=== PATIENT | female | born 1965 | race Caucasian/White ===

== ENCOUNTER 2018-10-07 02:01 | Emergency (ER) | payer OTHER ==
[2018-10-07] MEDS ORDERED: Acetaminophen/HYDROcodone 325-10 MG Tab PO ONE (02:02)
[2018-10-07 02:17] VITALS: PULSE 97
[2018-10-07 02:19] VITALS: BP 164/95
[2018-10-07] MEDS ORDERED: Morphine 2 MG/ML Syringe IVPUSH ONE ×2 (02:31→03:04)
[2018-10-07] MEDS ORDERED: Sodium Chloride 0.9% 1,000 ML IV ONE (02:31)
--- NOTE | 2018-10-07 02:45 | EDM.PDOC ---
ED HPI GENERAL MEDICAL PROBLEM - General Chief Complaint: Genitourinary Problem Stated Complaint: abdominal pain and vaginal bleading Time Seen by Provider: 10/07/18 02:35 Source of Information: Reports: Patient History Limitations: Reports: No Limitations - History of Present Illness INITIAL COMMENTS - FREE TEXT/NARRATIVE: This 53 yo female patient reports to the ED with vaginal pain and bleeding. The patient reports she removed her pessary device 3 weeks ago due to increased pain. The patient reports she had shoulder surgery and has been on pain medication up to 4 days ago. After she stopped taking oral pain medications, the patient has noticed increased pain. The patient reports her pain has been getting worse over the past 24 hours. The patient reports she has the urge to urinate, but has not been able to void. The patient reports she has some urine passage when she moves. The patient reports she had the pessary originally placed by Dr. Belcher (Urology in [facility]). Duration: Week(s):, Constant, Getting Worse Location: Reports: Other (vaginal pain) Quality: Reports: Ache, Sharp, Stabbing Severity: Moderate Improves with: Reports: None Worsens with: Reports: None Context: Reports: Other - Related Data Allergies Allergy/AdvReac Type Severity Reaction Status Date / Time No Known Allergies Allergy Verified 03/23/16 23:16 Home Meds: Home Meds Venlafaxine [Effexor XR] 1 tab PO DAILY 08/06/14 [History] Cholecalciferol (Vitamin D3) [Vitamin D3] 1,000 units PO DAILY 01/12/16 [History ] Dapsone 25 mg PO DAILY 01/12/16 [History] Hydrochlorothiazide 25 mg PO DAILY 01/12/16 [History] Multivitamin [Multivitamins] 1 tab PO DAILY 01/12/16 [History] Solifenacin [Vesicare] 5 mg PO DAILY 01/12/16 [History] Venlafaxine HCl [Venlafaxine ER] 37.5 mg PO DAILY 01/12/16 [History] amLODIPine [Norvasc] 5 mg PO DAILY 01/12/16 [History] amLODIPine [Norvasc] 5 mg PO DAILY 01/12/16 [History] hydrOXYzine HCl [Atarax] 25 mg PO ASDIRECTED PRN 01/12/16 [History] rOPINIRole [Requip] 1 mg PO DAILY 01/12/16 [History] Past Medical History HEENT History: Reports: None Cardiovascular History: Reports: Hypertension Respiratory History: Reports: Other (See Below) Other Respiratory History: Pneumonia DIRECT[employer] 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: 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: Musculoskeletal History: Reports: None Neurological History: Reports: None Psychiatric History: Reports: Anxiety, Depression Endocrine/Metabolic History: Reports: None Hematologic History: Reports: None Immunologic History: Reports: None Oncologic (Cancer) History: Reports: None Dermatologic History: Reports: None - Infectious Disease History Infectious Disease History: Reports: None - Past Surgical History Head Surgeries/Procedures: Reports: None GI Surgical History: Reports: Cholecystectomy Female Surgical History: Reports: Hysterectomy Neurological Surgical History: Reports: None Social & Family History - Family History Family Medical History: Noncontributory - Caffeine Use Caffeine Use: Reports: None - Living Situation & Occupation Living situation: Reports: ED ROS GENERAL - Review of Systems Review Of Systems: ROS reveals no pertinent complaints other than HPI. ED EXAM, RENAL/ - Physical Exam Exam: See Below Exam Limited By: No Limitations General Appearance: Alert, WD/WN, Moderate Distress Eye Exam: Bilateral Eye: EOMI, Normal Inspection, PERRL Ears: Normal External Exam, Normal Canal, Hearing Grossly Normal, Normal TMs Nose: Normal Inspection, Normal Mucosa, No Blood Throat/Mouth: Normal Inspection, Normal Lips, Normal Teeth, Normal Gums, Normal Oropharynx, Normal Voice, No Airway Compromise Head: Atraumatic, Normocephalic Neck: Normal Inspection, Supple, Non-Tender, Full Range of Motion Respiratory/Chest: No Respiratory Distress, Lungs Clear, Normal Breath Sounds, No Accessory Muscle Use, Chest Non-Tender Cardiovascular: Normal Peripheral Pulses, Regular Rate, Rhythm, No Edema, No Gallop, No JVD, No Murmur, No Rub GI/Abdominal: Normal Bowel Sounds, Soft, Non-Tender, No Organomegaly, No Distention, No Abnormal Bruit, No Mass Rectal (Female) Exam: Deferred Back Exam: Normal Inspection, Full Range of Motion, NT Extremities: Normal Inspection, Normal Range of Motion, Non-Tender, Normal Capillary Refill, No Pedal Edema Neurological: Alert, Oriented, CN II-XII Intact, Normal Cognition, Normal Gait, Normal Reflexes, No Motor/Sensory Deficits Psychiatric: Normal Affect, Normal Mood Skin Exam: Warm, Dry, Intact, Normal Color, No Rash Lymphatic: No Adenopathy Course - Vital Signs Last Recorded V/S: Last Vital Signs Temp 36.9 C 10/07/18 02:11 Pulse 97 10/07/18 02:11 Resp 18 10/07/18 02:11 BP 164/95 H 10/07/18 02:19 Pulse Ox 95 10/07/18 02:11 - Orders/Labs/Meds Orders: Active Orders 24 hr Category Date Time Status Bladder Scan [RC] ASDIRECTED Care 10/07/18 02:30 Active CULTURE BLOOD [BC] Stat Lab 10/07/18 03:00 Ordered CULTURE BLOOD [BC] Stat Lab 10/07/18 03:00 Ordered CULTURE URINE [RM] Urgent Lab 10/07/18 02:36 Received Sodium Chloride 0.9% [Normal Saline] 1,000 ml Med 10/07/18 02:31 Active IV .BOLUS Blood Culture x2 Reflex Set [OM.PC] Stat Oth 10/07/18 03:00 Ordered Medication Orders Sodium Chloride (Normal Saline) 1,000 mls @ 125 mls/hr IV .BOLUS ONE Stop: 10/07/18 10:30 Last Admin: 10/07/18 02:55 Dose: 125 mls/hr Labs: Laboratory Tests 10/07/18 10/07/18 10/07/18 Range/Units 02:36 02:36 02:36 WBC 17.2 H (5.0-10.0) 10^3/uL RBC 4.23 (4.2-5.4) 10^6/uL Hgb 13.4 (12.0-16.0) g/dL Hct 39.0 (37.0-47.0) % MCV 92.2 (80-100) fL MCH 31.7 (27.0-34.0) pg MCHC 34.4 (33.0-35.0) g/dL Plt Count 306 D (150-450) 10^3/uL Neut % (Auto) 74.0 (42.2-75.2) % Lymph % (Auto) 15.3 L (20.5-50.1) % [place] % (Auto) 8.0 (2-8) % Eos % (Auto) 2.4 (1.0-3.0) % Baso % (Auto) 0.3 (0.0-1.0) % Sodium 137 (135-145) mmol/L Potassium 2.9 L (3.6-5.0) mmol/L Chloride 100 L (101-111) mmol/L Carbon Dioxide 24.0 (21.0-31.0) mmol/L Anion Gap 15.9 BUN 15 (7-18) mg/dL Creatinine 0.8 (0.6-1.3) mg/dL Est Cr Clr Drug Dosing 79.99 mL/min Estimated GFR (MDRD) > 60 BUN/Creatinine Ratio 18.75 Glucose 133 H (74-105) mg/dL Lactic Acid (0.5-2.2) mmol/L Calcium 9.0 (8.4-10.2) mg/dl Total Bilirubin 0.4 (0.2-1.0) mg/dL AST 30 (10-42) IU/L ALT 24 (10-60) IU/L Alkaline Phosphatase 91 (42-121) IU/L Total Protein 6.9 (6.7-8.2) g/dl Albumin 3.7 (3.2-5.5) g/dl Globulin 3.2 Albumin/Globulin Ratio 1.16 Urine Color Red (YELLOW) Urine Appearance Cloudy (CLEAR) Urine pH 6.0 (5.0-9.0) Ur Specific [place] >= 1.030 (1.005-1.030) Urine Protein >=300 H (NEGATIVE) Urine Glucose (UA) Negative (NEGATIVE) Urine Ketones Trace H (NEGATIVE) Urine Occult Blood Large H (NEGATIVE) Urine Nitrite Positive H (NEGATIVE) Urine Bilirubin Small H (NEGATIVE) Urine Urobilinogen 1.0 (0.2-1.0) mg/dL Ur Leukocyte Esterase Small H (NEGATIVE) Urine RBC >100 H /HPF Urine WBC >100 H (0-5/HPF) /HPF Ur Epithelial Cells Few (NOT SEEN) /HPF Urine Bacteria Many H (0-FEW/HPF) /HPF Hyaline Casts Occasional H (NOT SEEN) /LPF 10/07/18 Range/Units 03:07 WBC (5.0-10.0) 10^3/uL RBC (4.2-5.4) 10^6/uL Hgb (12.0-16.0) g/dL Hct (37.0-47.0) % MCV (80-100) fL MCH (27.0-34.0) pg MCHC (33.0-35.0) g/dL Plt Count (150-450) 10^3/uL Neut % (Auto) (42.2-75.2) % Lymph % (Auto) (20.5-50.1) % [place] % (Auto) (2-8) % Eos % (Auto) (1.0-3.0) % Baso % (Auto) (0.0-1.0) % Sodium (135-145) mmol/L Potassium (3.6-5.0) mmol/L Chloride (101-111) mmol/L Carbon Dioxide (21.0-31.0) mmol/L Anion Gap BUN (7-18) mg/dL Creatinine (0.6-1.3) mg/dL Est Cr Clr Drug Dosing mL/min Estimated GFR (MDRD) BUN/Creatinine Ratio Glucose (74-105) mg/dL Lactic Acid 2.2 (0.5-2.2) mmol/L Calcium (8.4-10.2) mg/dl Total Bilirubin (0.2-1.0) mg/dL AST (10-42) IU/L ALT (10-60) IU/L Alkaline Phosphatase (42-121) IU/L Total Protein (6.7-8.2) g/dl Albumin (3.2-5.5) g/dl Globulin Albumin/Globulin Ratio Urine Color (YELLOW) Urine Appearance (CLEAR) Urine pH (5.0-9.0) Ur Specific [place] (1.005-1.030) Urine Protein (NEGATIVE) Urine Glucose (UA) (NEGATIVE) Urine Ketones (NEGATIVE) Urine Occult Blood (NEGATIVE) Urine Nitrite (NEGATIVE) Urine Bilirubin (NEGATIVE) Urine Urobilinogen (0.2-1.0) mg/dL Ur Leukocyte Esterase (NEGATIVE) Urine RBC /HPF Urine WBC (0-5/HPF) /HPF Ur Epithelial Cells (NOT SEEN) /HPF Urine Bacteria (0-FEW/HPF) /HPF Hyaline Casts (NOT SEEN) /LPF Meds: Medications Generic Name Dose Route Start Last Admin Trade Name Freq PRN Reason Stop Dose Admin Sodium Chloride 1,000 mls @ 125 mls/hr 10/07/18 02:31 10/07/18 02:55 Normal Saline IV 10/07/18 10:30 125 mls/hr .BOLUS ONE Administration Discontinued Medications Generic Name Dose Route Start Last Admin Trade Name Jose PRN Reason Stop Dose Admin Ciprofloxacin 500 mg 10/07/18 04:02 10/07/18 04:08 Ciprofloxacin Hcl PO 10/07/18 04:03 500 mg ONETIME ONE Administration Hydromorphone HCl 1 mg 10/07/18 03:21 10/07/18 03:25 Dilaudid IVPUSH 10/07/18 03:22 1 mg ONETIME ONE Administration Iopamidol 100 ml 10/07/18 03:05 10/07/18 03:16 Isovue-300 (61%) IVPUSH 10/07/18 03:06 100 ml ONETIME ONE Administration Morphine Sulfate 2 mg 10/07/18 02:31 10/07/18 02:56 Morphine IVPUSH 10/07/18 02:32 2 mg ONETIME ONE Administration Morphine Sulfate 2 mg 10/07/18 03:04 10/07/18 03:11 Morphine IVPUSH 10/07/18 03:05 2 mg ONETIME ONE Administration Phenazopyridine HCl 190 mg 10/07/18 04:02 10/07/18 04:09 Urinary Pain Relief PO 10/07/18 04:03 190 mg ONETIME ONE Administration Departure - Departure Time of Disposition: 04:18 Disposition: Home, Self-Care 01 Condition: Fair Clinical Impression: Acute cystitis Qualifiers: Hematuria presence: with hematuria Qualified Code(s): N30.01 - Acute cystitis with hematuria - Discharge Information *PRESCRIPTION DRUG MONITORING PROGRAM REVIEWED*: Not Applicable *COPY OF PRESCRIPTION DRUG MONITORING REPORT IN PATIENT VIKAS: Not Applicable Instructions: Urinary Tract Infection, Adult, [id number] Forms: ED Department Discharge Care Plan Goals: The patient was advised of the examination, lab and CT results during the visit. The patient was given IV fluids, IV Morphine, IV Dilaudid, oral Cipro and oral Pyridium while in the ED. The patient was discharged with [place] (10/325 ) #2 to take 1 by mouth every 6 hours. The patient was also given scripts for Cipro (500 mg) #14 to take 1 by mouth 2 times per day for 7 days, Pyridium (200 mg) #6 to take 1 by mouth 3 times per day and [place] (10/325) #8 to take 1 by mouth every 6 hours as needed for pain. The patient was encouraged to follow-up with her primary care facility. If the patient has any additional symptoms or concerns, the patient should either return to the emergency department or visit her primary care facility. - My Orders Last 24 Hours: My Active Orders 10/07/18 02:30 Bladder Scan [RC] ASDIRECTED 10/07/18 02:31 Sodium Chloride 0.9% [Normal Saline] 1,000 ml IV .BOLUS 10/07/18 02:36 CULTURE URINE [RM] Urgent 10/07/18 03:00 CULTURE BLOOD [BC] Stat CULTURE BLOOD [BC] Stat Blood Culture x2 Reflex Set [OM.PC] Stat - Assessment/Plan Last 24 Hours: My Active Orders 10/07/18 02:30 Bladder Scan [RC] ASDIRECTED 10/07/18 02:31 Sodium Chloride 0.9% [Normal Saline] 1,000 ml IV .BOLUS 10/07/18 02:36 CULTURE URINE [RM] Urgent 10/07/18 03:00 CULTURE BLOOD [BC] Stat CULTURE BLOOD [BC] Stat Blood Culture x2 Reflex Set [OM.PC] Stat
[2018-10-07 03:03] LABS: ANION GAP 15.9; CHLORIDE,CL 100 mmol/L (101-111); SODIUM,NA 137 mmol/L (135-145)
[2018-10-07] MEDS ORDERED: Iopamidol 612 MG/ML 100 ML Bottle IVPUSH ONE (03:05)
[2018-10-07] MEDS ORDERED: HYDROmorphone 1 MG/ML Syringe IVPUSH ONE (03:21)
[2018-10-07] MEDS ORDERED: Phenazopyridine 95 MG Tab PO ONE (04:02)
[2018-10-07] MEDS ORDERED: Ciprofloxacin 500 MG Tab PO ONE (04:02)
[2018-10-07] MEDS ORDERED: Acetaminophen/HYDROcodone 325-10 MG Tab ONE (04:24)
== END 2018-10-07 04:30 | disposition home or self-care (01) ==
LOC: DL.ED 02:01
DX: N30.01 Acute cystitis with hematuria (principal); I10 Essential (primary) hypertension; F41.9 Anxiety disorder, unspecified; Z90.49 Acquired absence of other specified parts of digestive tract; Z90.710 Acquired absence of both cervix and uterus; Z79.899 Other long term (current) drug therapy
CPT/HCPCS: 36415; 51798; 74177; 80053; 81001; 83605; 85025; 87040; 87086; 87088; 87186; 96365; 96375; 99284; A9270; J1170; J2270; J7030; Q9967

== ENCOUNTER 2018-10-09 15:50 | Emergency (ER) | payer OTHER ==
[2018-10-09 16:11] VITALS: BP 146/97
--- NOTE | 2018-10-09 16:21 | EDM.PDOC ---
"ED HPI GENERAL MEDICAL PROBLEM - General Chief Complaint: General Stated Complaint: IN PAIN Time Seen by Provider: 10/09/18 16:19 Source of Information: Reports: Patient, Old Records, RN, RN Notes Reviewed History Limitations: Reports: No Limitations - History of Present Illness INITIAL COMMENTS - FREE TEXT/NARRATIVE: Pt presents to ER with c/o sudden onset of sharp, burning, and pressure-like chest pain from the epigastrium to the upper chest. The pain radiates to the right neck, and she reports tingling to the left arm. Pt states she was at work at a fairly sedentary job when the pain began at approx. 1530HRS today. Pt's boss told her that she looked pale. The pt states she became anxious, then developed nausea and was diaphoretic. Patient c/o chills. She was seen here on and Dx'd with UTI, treated with Cipro. Urine culture returned today shows E-Coli sensitive to Cipro. Pt is POD #13 s/p right rotator cuff repair. Pt was seen in clinic yesterday and treated for hypokalemia. Pt rates the pain . Nothing alleviates or worsens the pain. 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: Other (see below) Headache Pain Score (Numeric/FACES): 10 - Related Data Allergies Allergy/AdvReac Type Severity Reaction Status Date / Time No Known Allergies Allergy Verified 10/07/18 04:53 Home Meds: Home Meds Cholecalciferol (Vitamin D3) [Vitamin D3] 1,000 units PO DAILY 01/12/16 [History ] Multivitamin [Multivitamins] 1 tab PO DAILY 01/12/16 [History] rOPINIRole [Requip] 1 mg PO DAILY 01/12/16 [History] Ascorbate Calcium [Vitamin C] 100 mg PO BID 10/09/18 [History] Aspirin 325 mg PO DAILY 10/09/18 [History] Cephalexin [Keflex] 500 mg PO Q6HR 10/09/18 [History] Cetirizine [ZyrTEC] 10 mg PO DAILY 10/09/18 [History] Cevimeline HCl 30 mg PO TID 10/09/18 [History] Chlorthalidone 25 mg PO DAILY 10/09/18 [History] Ciprofloxacin [Cipro XR] 500 mg PO BID 10/09/18 [History] Dapsone 25 mg PO DAILY 10/09/18 [History] Fexofenadine [Nataliia] 180 mg PO DAILY 10/09/18 [History] Fluticasone Propionate [Flonase] 2 spray NASBOTH DAILY 10/09/18 [History] Hydrocodone/Acetaminophen [Zephyr 10-325 Tablet] 1 tab PO Q4HR PRN 10/09/18 [ History] Lisinopril 5 mg PO DAILY 10/09/18 [History] Montelukast [Singulair] 10 mg PO DAILY 10/09/18 [History] Morphine 15 mg PO BID PRN 10/09/18 [History] Pantoprazole [ProTONIX] 40 mg PO DAILY 10/09/18 [History] Potassium Chloride 10 meq PO BID 10/09/18 [History] Promethazine [Phenergan] 25 mg PO Q6HR PRN 10/09/18 [History] SUMAtriptan [Imitrex] 50 mg PO DAILY 10/09/18 [History] Sennosides/Docusate Sodium [Senna-Docusate Sodium Tablet] 2 tab PO BID PRN 10/09 [History] Tolterodine [Detrol] 4 mg PO DAILY 10/09/18 [History] buPROPion [buPROPion XL] 300 mg PO DAILY 10/09/18 [History] valACYclovir [Valtrex] 2,000 mg PO BID PRN 10/09/18 [History] Past Medical History HEENT History: Reports: None Cardiovascular History: Reports: Hypertension Respiratory History: Reports: Other (See Below) Other Respiratory History: Pneumonia Gastrointestinal History: Reports: GERD 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: Musculoskeletal History: Reports: Back Pain, Chronic Neurological History: Reports: None Psychiatric History: Reports: Anxiety, Depression Endocrine/Metabolic History: Reports: Obesity/BMI 30+ Hematologic History: Reports: None Immunologic History: Reports: None Oncologic (Cancer) History: Reports: None Dermatologic History: Reports: None - Infectious Disease History Infectious Disease History: Reports: None - Past Surgical History Head Surgeries/Procedures: Reports: None GI Surgical History: Reports: Cholecystectomy Female Surgical History: Reports: Hysterectomy Neurological Surgical History: Reports: None Musculoskeletal Surgical History: Reports: Shoulder Surgery, Other (See Below) Other Musculoskeletal Surgeries/Procedures:: back and neck surgery Social & Family History - Family History Family Medical History: Noncontributory - Tobacco Use Smoking Status *Q: Never Smoker - Caffeine Use Caffeine Use: Reports: None - Recreational Drug Use Recreational Drug Use: No - Living Situation & Occupation Living situation: Reports: ED ROS GENERAL - Review of Systems Review Of Systems: ROS reveals no pertinent complaints other than HPI. ED EXAM, GENERAL - Physical Exam Exam: See Below Exam Limited By: No Limitations General Appearance: Anxious, Obese Eye Exam: Bilateral Eye: Normal Inspection Nose: Normal Inspection, Normal Mucosa, No Blood Throat/Mouth: Normal Inspection, Normal Lips, Normal Teeth, Normal Gums, Normal Oropharynx, Normal Voice, No Airway Compromise Head: Atraumatic, Normocephalic Neck: Normal Inspection, Supple, Non-Tender, Full Range of Motion Respiratory/Chest: No Respiratory Distress, Lungs Clear, Normal Breath Sounds, No Accessory Muscle Use, Chest Non-Tender Cardiovascular: Normal Peripheral Pulses, Regular Rate, Rhythm, No Edema, No Gallop, No JVD, No Murmur, No Rub GI/Abdominal: Normal Bowel Sounds, Soft, Non-Tender, No Organomegaly, No Distention, No Abnormal Bruit, No Mass Back Exam: Normal Inspection Extremities: Normal Range of Motion (Left upper and B/L lower extremities), No Pedal Edema, Normal Capillary Refill, Other (Right upper extremity no removed from sling, surgical dressing not removed. No visible erythema, no palpable increased warmth.). No: Joint Swelling, Glory's Sign Neurological: Alert, Oriented, CN II-XII Intact, Normal Cognition, Normal Gait, No Motor/Sensory Deficits Psychiatric: Anxious, Tearful Skin Exam: Warm, Dry, Intact, Normal Color, No Rash EKG INTERPRETATION EKG Date: 10/09/18 Time: 16:37 Rhythm: Other (SR) Rate (Beats/Min): 94 Bath: LAD-Left Bath Deviation (borderline) P-Wave: Present QRS: Normal ST-T: Normal QT: Prolonged (borderline) Comparison: NA - No Prior EKG Course - Vital Signs Last Recorded V/S: Last Vital Signs Temp 97.8 F 10/09/18 16:08 Pulse 108 H 10/09/18 16:08 Resp 20 10/09/18 16:08 BP 146/97 H 10/09/18 16:08 Pulse Ox 98 10/09/18 16:08 - Orders/Labs/Meds Orders: Active Orders 24 hr Category Date Time Status EKG 12 Lead [EKG Documentation Completion] [RC] STAT Care 10/09/18 16:26 Active Peripheral IV Care [RC] . DIRECTED Care 10/09/18 16:27 Active Sodium Chloride 0.9% [Saline Flush] Med 10/09/18 16:26 Active 10 ml FLUSH ASDIRECTED PRN Peripheral IV Insertion Adult [OM.PC] Stat Oth 10/09/18 16:26 Ordered Medication Orders Sodium Chloride (Saline Flush) 10 ml FLUSH ASDIRECTED PRN PRN Reason: Keep Vein Open Last Admin: 10/09/18 16:59 Dose: 10 ml Labs: Laboratory Tests 10/09/18 10/09/18 10/09/18 Range/Units 16:36 16:36 16:36 WBC 9.8 (5.0-10.0) 10^3/uL RBC 4.73 (4.2-5.4) 10^6/uL Hgb 14.7 (12.0-16.0) g/dL Hct 43.1 (37.0-47.0) % MCV 91.1 (80-100) fL MCH 31.1 (27.0-34.0) pg MCHC 34.1 (33.0-35.0) g/dL Plt Count 350 (150-450) 10^3/uL Neut % (Auto) 58.8 (42.2-75.2) % Lymph % (Auto) 30.7 (20.5-50.1) % Jay % (Auto) 6.8 (2-8) % Eos % (Auto) 3.4 H (1.0-3.0) % Baso % (Auto) 0.3 (0.0-1.0) % PT 9.9 (9.0-12.0) SEC INR 1.0 (0.9-1.2) APTT 24.7 (22.0-34.0) SEC Sodium 136 (135-145) mmol/L Potassium 3.3 L (3.6-5.0) mmol/L Chloride 99 L (101-111) mmol/L Carbon Dioxide 22.0 (21.0-31.0) mmol/L Anion Gap 18.3 BUN 21 H (7-18) mg/dL Creatinine 0.9 (0.6-1.3) mg/dL Est Cr Clr Drug Dosing 71.11 mL/min Estimated GFR (MDRD) > 60 BUN/Creatinine Ratio 23.33 Glucose 79 (74-105) mg/dL Calcium 9.7 (8.4-10.2) mg/dl Magnesium (1.8-2.5) mg/dL Total Bilirubin 0.9 (0.2-1.0) mg/dL AST 26 (10-42) IU/L ALT 21 (10-60) IU/L Alkaline Phosphatase 90 (42-121) IU/L Troponin I < 0.02 (0.00-0.02) ng/ml Total Protein 7.3 (6.7-8.2) g/dl Albumin 4.0 (3.2-5.5) g/dl Globulin 3.3 Albumin/Globulin Ratio 1.21 Amylase 55 (28-100) U/L Lipase 45 (22-51) U/L /04/17 Range/Units 16:36 WBC (5.0-10.0) 10^3/uL RBC (4.2-5.4) 10^6/uL Hgb (12.0-16.0) g/dL Hct (37.0-47.0) % MCV (80-100) fL MCH (27.0-34.0) pg MCHC (33.0-35.0) g/dL Plt Count (150-450) 10^3/uL Neut % (Auto) (42.2-75.2) % Lymph % (Auto) (20.5-50.1) % Jay % (Auto) (2-8) % Eos % (Auto) (1.0-3.0) % Baso % (Auto) (0.0-1.0) % PT (9.0-12.0) SEC INR (0.9-1.2) APTT (22.0-34.0) SEC Sodium (135-145) mmol/L Potassium (3.6-5.0) mmol/L Chloride (101-111) mmol/L Carbon Dioxide (21.0-31.0) mmol/L Anion Gap BUN (7-18) mg/dL Creatinine (0.6-1.3) mg/dL Est Cr Clr Drug Dosing mL/min Estimated GFR (MDRD) BUN/Creatinine Ratio Glucose (74-105) mg/dL Calcium (8.4-10.2) mg/dl Magnesium 1.8 (1.8-2.5) mg/dL Total Bilirubin (0.2-1.0) mg/dL AST (10-42) IU/L ALT (10-60) IU/L Alkaline Phosphatase (42-121) IU/L Troponin I (0.00-0.02) ng/ml Total Protein (6.7-8.2) g/dl Albumin (3.2-5.5) g/dl Globulin Albumin/Globulin Ratio Amylase (28-100) U/L Lipase (22-51) U/L Meds: Medications Generic Name Dose Route Start Last Admin Trade Name Freq PRN Reason Stop Dose Admin Sodium Chloride 10 ml 10/09/18 16:26 10/09/18 16:59 Saline Flush FLUSH 10 ml ASDIRECTED PRN Administration Keep Vein Open Discontinued Medications Generic Name Dose Route Start Last Admin Trade Name Freq PRN Reason Stop Dose Admin Al Hydroxide/Mg Hydroxide 30 ml 10/09/18 17:31 10/09/18 17:42 Gi Cocktail PO 10/09/18 17:32 30 ml ONETIME ONE Administration Aspirin 324 mg 10/09/18 16:27 10/09/18 16:59 Aspirin PO 10/09/18 16:28 324 mg ONETIME ONE Administration Famotidine 20 mg 10/09/18 17:31 10/09/18 17:42 Pepcid IVPUSH 10/09/18 17:32 20 mg ONETIME ONE Administration Iopamidol 100 ml 10/09/18 17:27 10/09/18 18:04 Isovue-370 (76%) IVPUSH 10/09/18 17:28 90 ml ONETIME ONE Administration Morphine Sulfate 4 mg 10/09/18 16:28 10/09/18 16:59 Morphine IVPUSH 10/09/18 16:29 4 mg ONETIME ONE Administration - Radiology Interpretation Free Text/Narrative:: 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 If you received this in error, call [phone]. Page 1 of 1 EXAM: XR Chest, 1 View EXAM DATE/TIME: 10/09/2018 4:30 PM CLINICAL HISTORY: 53 years old, female; Chest pain; Type not specified TECHNIQUE: Imaging protocol: XR of the chest, 1 view. COMPARISON: CR Chest 1V Frontal 03/23/2016 10:50 PM FINDINGS: Lungs: Mild atelectatic changes within the lung bases. Pleural space: No focal pneumonia or pneumothorax. Heart/Mediastinum: No cardiomegaly. Bones/joints: Postoperative changes of the lower cervical spine. IMPRESSION: 1. No focal pneumonia or pneumothorax. 2. Mild atelectatic changes within the lung bases. The spine is normal. Thank you for allowing us to participate in the care of your patient. Dictated and Authenticated by: Mars Degroot DO 10/09/2018 4:50 PM Central Time ([place] & [place]) [facility] Final Radiology Report Call: [phone] assistance Online chat: [email or web address] Name: CAS SILVERMAN Age: 53Years F Date: 10/09/2018 SSN: -- : [id number] Study: CT CHEST W Requesting Physician: SHELBI GARCIA Images: 429 Addl Studies: Provided Clinical History: Contrast: With Contrast Medium: ISO 370 Contrast Amount: 90 mL Contrast Method: LAC 18g Page 1 of 2 EXAM: CT Chest With Contrast EXAM DATE/TIME: 10/09/2018 5:47 PM CLINICAL HISTORY: 53 years old, female; Signs and symptoms; Other: Chest pain, tachycardia, pod # 13 S/P right shoulder/rotator cuff surgery, *pe study* TECHNIQUE: Imaging protocol: Axial computed tomography images of the chest with intravenous contrast. Coronal and sagittal reformatted images were created and reviewed. Radiation optimization: All CT scans at this facility use at least one of these dose optimization techniques: automated exposure control; mA and/or kV adjustment per patient size (includes targeted exams where dose is matched to clinical indication); or iterative reconstruction. Contrast material: ISO 370; Contrast volume: 90 ml; Contrast route: LAC 18G; COMPARISON: CR Chest 1V Frontal 10/09/2018 4:30 PM FINDINGS: Lungs: Unremarkable. No consolidation. No masses. Pleural space: Unremarkable. No pneumothorax. No pleural effusion. Heart: Unremarkable. No cardiomegaly. No pericardial effusion. Pulmonary arteries: There are no pulmonary emboli. Aorta: Mild dilatation of the ascending thoracic aorta measures 3.7 cm. There is no aortic dissection. Lymph nodes: Unremarkable. No enlarged lymph nodes. Bones/joints: Status post lower cervical anterior interbody fusion. The spine demonstrates mild degenerative changes. CAS SILVERMAN | Final Radiology Report CONFIDENTIALITY STATEMENT This report is intended only for use by the referring physician, and only in accordance with law. If you received this in error, call [phone]. Page 2 of 2 Soft tissues: Unremarkable. IMPRESSION: 1. Mild dilatation of the ascending thoracic aorta measures 3.7 cm. There is no aortic dissection. 2. There are no pulmonary emboli. 3. No acute pulmonary parenchymal findings. Thank you for allowing us to participate in the care of your patient. Dictated and Authenticated by: Domingo Blanoc MD 10/09/2018 6:34 PM Central Time ([place] & [place]) - Re-Assessments/Exams Free Text/Narrative Re-Assessment/Exam: 10/09/18 18:25 Pt reports significant relief in her chest pain following GI cocktail. Departure - Departure Time of Disposition: 18:37 Disposition: Home, Self-Care 01 Condition: Fair Clinical Impression: Chest pain, non-cardiac, Esophagitis due to drug, Hypokalemia, Dilatation of thoracic aorta - Discharge Information *PRESCRIPTION DRUG MONITORING PROGRAM REVIEWED*: Yes *COPY OF PRESCRIPTION DRUG MONITORING REPORT IN PATIENT VIKAS: Not Applicable Instructions: Esophagitis, Nonspecific Chest Pain, [id number], Hypokalemia, Potassium Content of Foods Referrals: PCP,None [Primary Care Provider] - Forms: ED Department Discharge Additional Instructions: Rx: Carafate 1g/10ml Ask your doctor if you can be switched to a liquid Potassium Supplement. Eat a high potassium diet. Remain sitting up for 2 hours after eating or drinking. Avoid spicy foods, fried/greasy foods, mint, chocolate, coffee/caffeine, and alcohol for at least 30 days. Follow up in clinic with your doctor this week for recheck. - My Orders Last 24 Hours: My Active Orders 10/09/18 16:26 EKG 12 Lead [EKG Documentation Completion] [RC] STAT Sodium Chloride 0.9% [Saline Flush] 10 ml FLUSH ASDIRECTED PRN Peripheral IV Insertion Adult [OM.PC] Stat 10/09/18 16:27 Peripheral IV Care [RC] . DIRECTED - Assessment/Plan Last 24 Hours: My Active Orders 10/09/18 16:26 EKG 12 Lead [EKG Documentation Completion] [RC] STAT Sodium Chloride 0.9% [Saline Flush] 10 ml FLUSH ASDIRECTED PRN Peripheral IV Insertion Adult [OM.PC] Stat 10/09/18 16:27 Peripheral IV Care [RC] . DIRECTED"
[2018-10-09] MEDS ORDERED: Sodium Chloride 0.9% 10 ML Syringe FLUSH PRN (16:26)
[2018-10-09] MEDS ORDERED: Aspirin 81 MG Tab.Chew PO ONE (16:27)
[2018-10-09] MEDS ORDERED: Morphine 4 MG/ML Syringe IVPUSH ONE (16:28)
[2018-10-09 17:06] LABS: ANION GAP 18.3; CHLORIDE,CL 99 mmol/L (101-111); SODIUM,NA 136 mmol/L (135-145)
[2018-10-09] MEDS ORDERED: Iopamidol 755 Mg/ML 100 ML Bottle IVPUSH ONE (17:27)
[2018-10-09] MEDS ORDERED: GI Cocktail Oral Solution 30 ML PO ONE (17:31)
[2018-10-09] MEDS ORDERED: Famotidine 20 MG/2 ML SDV IVPUSH ONE (17:31)
[2018-10-09] MEDS ORDERED: Ketorolac 30 MG/ML SDV IVPUSH ONE (18:48)
[2018-10-09] MEDS ORDERED: HYDROmorphone 1 MG/ML Syringe IVPUSH ONE (18:49)
[2018-10-09] MEDS ORDERED: Ondansetron 4 MG/2 ML SDV IV ONE (18:50)
== END 2018-10-09 19:27 | disposition home or self-care (01) ==
LOC: DL.ED 15:50
DX: I77.810 Thoracic aortic ectasia (principal); K20.9 Esophagitis, unspecified; T36.8X5A Adverse effect of other systemic antibiotics, initial encounter; R07.89 Other chest pain; E87.6 Hypokalemia; I10 Essential (primary) hypertension; K21.9 Gastro-esophageal reflux disease without esophagitis; F41.9 Anxiety disorder, unspecified; F32.9 Major depressive disorder, single episode, unspecified; E66.9 Obesity, unspecified; Z79.899 Other long term (current) drug therapy; Z68.32 Body mass index [BMI] 32.0-32.9, adult
CPT/HCPCS: 36415; 71045; 71260; 80053; 82150; 83690; 83735; 84484; 85025; 85610; 85730; 93005; 96374; 96375; 99284; A9270; J1170; J1885; J2270; J2405; J3490; Q9967

== ENCOUNTER 2019-10-16 00:08 | Emergency (ER) | payer OTHER ==
[2019-10-16] MEDS ORDERED: Acetaminophen/oxyCODONE 325-5 MG Tab PO ONE ×3 (00:09→01:22)
[2019-10-16 00:56] VITALS: BP 117/73; PULSE 78
[2019-10-16] MEDS ORDERED: Lidocaine 1% 30 ML SDV INJECT ONE (01:33)
[2019-10-16] MEDS ORDERED: Bacitracin Oint 1 GM U/D Packet TOP ONE (01:34)
--- NOTE | 2019-10-16 01:34 | EDM.PDOC ---
ED HPI GENERAL MEDICAL PROBLEM - General Chief Complaint: Lower Extremity Injury/Pain Stated Complaint: TRIPPED ON A WATER HOSE/SPLIT KNEE OPEN Time Seen by Provider: 10/16/19 00:25 Source of Information: Reports: Patient History Limitations: Reports: No Limitations - History of Present Illness INITIAL COMMENTS - FREE TEXT/NARRATIVE: ED with spouse reports tripped over garden hose on patio and fell onto knees, laceration to right knee and pain to both knee caps, hurts to bend. , no loss of consciousness, Pain to left outer cheek where bumped face on cement. No hand or wrist pain. Treatments THERAPIST: Reports: Other (see below) Other Treatments THERAPIST: none Bilateral Knee Pain Score (Numeric/FACES): 10 - Related Data Allergies Allergy/AdvReac Type Severity Reaction Status Date / Time amlodipine Allergy Rash Verified 10/16/19 01:07 losartan [From Cozaar] Allergy Rash Verified 10/16/19 01:07 steri strips Allergy Rash Uncoded 10/16/19 01:07 glutin AdvReac Diarrhea Uncoded 10/16/19 01:07 Home Meds: Home Meds Cholecalciferol (Vitamin D3) [Vitamin D3] 1,000 units PO DAILY 01/12/16 [History] Multivitamin [Multivitamins] 1 tab PO DAILY 01/12/16 [History] rOPINIRole [Requip] 1 mg PO DAILY 01/12/16 [History] Ascorbate Calcium [Vitamin C] 100 mg PO BID 10/09/18 [History] Cetirizine [ZyrTEC] 10 mg PO DAILY 10/09/18 [History] Cevimeline HCl 30 mg PO TID 10/09/18 [History] Chlorthalidone 25 mg PO DAILY 10/09/18 [History] Dapsone 25 mg PO DAILY 10/09/18 [History] Fexofenadine [Nataliia] 180 mg PO DAILY 10/09/18 [History] Fluticasone Propionate [Flonase] 2 spray NASBOTH DAILY 10/09/18 [History] Lisinopril 5 mg PO DAILY 10/09/18 [History] Montelukast [Singulair] 10 mg PO DAILY 10/09/18 [History] Pantoprazole [ProTONIX] 40 mg PO DAILY 10/09/18 [History] Potassium Chloride 10 meq PO BID 10/09/18 [History] Promethazine [Phenergan] 25 mg PO Q6HR PRN 10/09/18 [History] buPROPion [buPROPion XL] 300 mg PO DAILY 10/09/18 [History] Past Medical History HEENT History: Reports: None Cardiovascular History: Reports: Hypertension Respiratory History: Reports: Other (See Below) Other Respiratory History: Pneumonia Gastrointestinal History: Reports: GERD 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: Musculoskeletal History: Reports: Back Pain, Chronic Neurological History: Reports: Other (See Below) Other Neuro History: "restless legs" Psychiatric History: Reports: Anxiety, Depression Endocrine/Metabolic History: Reports: Obesity/BMI 30+ Hematologic History: Reports: None Immunologic History: Reports: None Oncologic (Cancer) History: Reports: None Dermatologic History: Reports: None - Infectious Disease History Infectious Disease History: Reports: None - Past Surgical History Head Surgeries/Procedures: Reports: None GI Surgical History: Reports: Cholecystectomy Female Surgical History: Reports: Hysterectomy Neurological Surgical History: Reports: None Musculoskeletal Surgical History: Reports: Shoulder Surgery, Other (See Below) Other Musculoskeletal Surgeries/Procedures:: back and neck surgery Social & Family History - Family History Family Medical History: Noncontributory - Tobacco Use Smoking Status *Q: Unknown Ever Smoked - Caffeine Use Caffeine Use: Reports: Coffee - Recreational Drug Use Recreational Drug Use: No - Living Situation & Occupation Living situation: Reports: Review of Systems - Review of Systems Review Of Systems: Comprehensive ROS is negative, except as noted in HPI. ED EXAM, GENERAL - Physical Exam Exam: See Below Exam Limited By: No Limitations General Appearance: Alert, Moderate Distress Eye Exam: Bilateral Eye: EOMI, PERRL Ears: Normal External Exam Nose: Normal Inspection Throat/Mouth: Normal Inspection Head: Atraumatic, Normocephalic Neck: Normal Inspection Respiratory/Chest: No Respiratory Distress, Lungs Clear, Normal Breath Sounds, Chest Non-Tender Cardiovascular: Normal Peripheral Pulses, Regular Rate, Rhythm GI/Abdominal: Normal Bowel Sounds, Soft, Non-Tender Extremities: Limited Range of Motion, Other (contusion to bilateral patella, 3 cm laceration right knee transverse. clean, minimal seperation) Neurological: Alert, Oriented, Normal Cognition Psychiatric: Anxious Skin Exam: Warm, Wound/Incision (right knee laceration, superficial scratch left outer 1.5 cm) ED TRAUMA EXTREMITY PROCEDURES - Laceration/Wound Repair Right Mid-Posterior Knee Lac/Wound Length In cm: 3 Appearance: Subcutaneous, Clean Distal NVT: Neuro & Vascular Intact Anesthetic Type: Local Local Anesthesia - Lidocaine (Xylocaine): 1% Plain Local Anesthetic Volume: 2cc Skin Prep: Chlorhexidine (Hibiciens), Saline, Sterile Drape Exploration/Debridement/Repair: Wound Explored, In a Bloodless Field Closed With: Sutures Suture Size: 4-0 # of Sutures: 4 Suture Type: Nylon, Interrupted Suture Size: 4-0 # of Sutures: 2 Repaired With: Vicryl Drain Placement: Yes Sterile Dressing Applied: Nurse Tetanus Status Addressed: Yes Complications: No Course - Vital Signs Last Recorded V/S: Last Vital Signs Temp 98.8 F 10/16/19 00:23 Pulse 78 10/16/19 00:23 Resp 22 H 10/16/19 00:23 BP 117/73 10/16/19 00:23 Pulse Ox 99 10/16/19 00:23 - Orders/Labs/Meds Meds: Medications Discontinued Medications Generic Name Dose Route Start Last Admin Trade Name Jose PRN Reason Stop Dose Admin Bacitracin 1 dose 10/16/19 01:34 10/16/19 02:30 Bacitracin Oint 1 Gm TOP 10/16/19 01:35 1 dose ONETIME ONE Administration Lidocaine HCl 30 ml 10/16/19 01:33 10/16/19 02:30 Xylocaine-Mpf 1% INJECT 10/16/19 01:34 30 ml ONETIME ONE Administration Oxycodone/Acetaminophen 1 tab 10/16/19 01:22 10/16/19 01:45 Percocet 325-5 Mg PO 10/16/19 01:23 1 tab ONETIME ONE Administration Oxycodone/Acetaminophen Confirm 10/16/19 02:43 10/16/19 02:45 Percocet 325-5 Mg Administered 10/16/19 02:44 Not Given Dose 2 tab .ROUTE .STK-MED ONE Oxycodone/Acetaminophen 2 tab 10/16/19 00:09 Percocet 325-5 Mg PO 10/16/19 00:10 .STK-MED ONE Departure - Departure Time of Disposition: 02:27 Disposition: Home, Self-Care 01 Condition: Good Clinical Impression: Fall Qualifiers: Encounter type: initial encounter Qualified Code(s): W19.XXXA - Unspecified fall, initial encounter Laceration of right knee Qualifiers: Encounter type: initial encounter Qualified Code(s): S81.011A - Laceration without foreign body, right knee, initial encounter Knee contusion Qualifiers: Encounter type: initial encounter Laterality: unspecified laterality Qualified Code(s): S80.00XA - Contusion of unspecified knee, initial encounter Contusion of face Qualifiers: Encounter type: initial encounter Qualified Code(s): S00.83XA - Contusion of other part of head, initial encounter - Discharge Information *PRESCRIPTION DRUG MONITORING PROGRAM REVIEWED*: No *COPY OF PRESCRIPTION DRUG MONITORING REPORT IN PATIENT VIKAS: No Instructions: Crutch Use, Adult, [id number], Laceration Care, Adult, Sutured Wound Care Referrals: Svetlana Trejo NP [Primary Care Provider] - Forms: ED Department Discharge Additional Instructions: ice to knees and face bacitracin to wounds cover with dressing at least 5 days then if not draining may open to air at night wash with soap and water twice daily sutures out 10-14 days crutches percocet 5/325 one every 6 hours as needed for severe pain Ibuprofen 600mg or tylenol 650mg alternating every 4 hours as needed for moderate pain Sepsis Event Note (ED) - Evaluation Sepsis Screening Result: No Definite Risk
--- NOTE | 2019-10-16 01:53 | CR ---
PROCEDURE INFORMATION: Exam: XR Left Knee Exam date and time: 10/16/2019 1:27 AM Age: 54 years old Clinical indication: Injury or trauma; Fall; Initial encounter; Injury date: Today; Injury details: Patient tripped on a garden hose, abrasion to left cheek, left knee, laceration to right knee; Additional info: Fall, pain TECHNIQUE: Imaging protocol: XR Left knee. Views: 3 views. COMPARISON: No relevant prior studies available. FINDINGS: Bones/joints: Normal. Soft tissues: Normal. IMPRESSION: No acute findings.
--- NOTE | 2019-10-16 01:58 | CT ---
PROCEDURE INFORMATION: Exam: CT Maxillofacial Without Contrast Exam date and time: 10/16/2019 1:22 AM Age: 54 years old Clinical indication: Injury or trauma; Fall; Initial encounter; Cheek bone; Injury date: Today; Injury details: Patient tripped on a garden hose, fell, abrasion to left cheek, left knee and laceration to right knee; Additional info: Fell on concrete TECHNIQUE: Imaging protocol: Computed tomography images of the face without contrast. Radiation optimization: All CT scans at this facility use at least one of these dose optimization techniques: automated exposure control; mA and/or kV adjustment per patient size (includes targeted exams where dose is matched to clinical indication); or iterative reconstruction. COMPARISON: No relevant prior studies available. FINDINGS: Orbits: Orbits are normal. Globes are unremarkable. Bones/joints: Comminuted nasal arch fracture. The nasal septum is intact Sinuses: Normal. No air-fluid levels. Soft tissues: See "Bones/joints" finding. IMPRESSION: Comminuted mildly depressed nasal arch fracture.
--- NOTE | 2019-10-16 01:58 | CR ---
PROCEDURE INFORMATION: Exam: XR Right Knee Exam date and time: 10/16/2019 1:28 AM Age: 54 years old Clinical indication: Injury or trauma; Fall; Initial encounter; Patella or knee; Foreign body involvement not specified; Injury date: Today; Injury details: Patient tripped on a garden hose, abrasion to left cheek, left knee, laceration to right knee; Additional info: Fall, pain TECHNIQUE: Imaging protocol: XR Right knee. Views: 3 views. COMPARISON: No relevant prior studies available. FINDINGS: Bones/joints: Normal. Soft tissues: Normal. IMPRESSION: No acute findings.
[2019-10-16] MEDS ORDERED: Acetaminophen/oxyCODONE 325-5 MG Tab ONE (02:43)
== END 2019-10-16 02:48 | disposition home or self-care (01) ==
LOC: DL.ED 00:08
DX: S81.011A Laceration without foreign body, right knee, initial encounter (principal); S80.02XA Contusion of left knee, initial encounter; S00.83XA Contusion of other part of head, initial encounter; F41.9 Anxiety disorder, unspecified; F32.9 Major depressive disorder, single episode, unspecified; K21.9 Gastro-esophageal reflux disease without esophagitis; I10 Essential (primary) hypertension; E66.9 Obesity, unspecified; Z68.37 Body mass index [BMI] 37.0-37.9, adult; Z88.8 Allergy status to other drugs, medicaments and biological substances; Z91.018 Allergy to other foods; Z91.048 Other nonmedicinal substance allergy status; Z79.899 Other long term (current) drug therapy; W01.0XXA Fall on same level from slipping, tripping and stumbling without subsequent striking against object, initial encounter
CPT/HCPCS: 12032; 70486; 73562; 99283; A9270; J2001

== ENCOUNTER 2020-03-01 19:45 | Emergency (ER) | payer OTHER ==
[2020-03-01 20:56] VITALS: BP 130/81; PULSE 120
== END 2020-03-01 21:45 | disposition left against medical advice (07) ==
LOC: DL.ED 19:45
DX: Z53.21 Procedure and treatment not carried out due to patient leaving prior to being seen by health care provider (principal)

== ENCOUNTER 2021-01-05 17:28 | Emergency (ER) | payer OTHER ==
[2021-01-05 17:55] VITALS: BP 148/107; PULSE 109
--- NOTE | 2021-01-05 18:45 | EDM.PDOC ---
ED HPI GENERAL MEDICAL PROBLEM - General Chief Complaint: Lower Extremity Injury/Pain Stated Complaint: LEFT KNEE INJURY Time Seen by Provider: 01/05/21 18:38 Source of Information: Reports: Patient History Limitations: Reports: No Limitations - History of Present Illness INITIAL COMMENTS - FREE TEXT/NARRATIVE: 55 y/o F pt states that she was working out and got a little dizzy going into her last rep, states that she was walking and slipped on a mat landing with all her wt on her left knee, states that it started to swell right away and has been very painful, states that it is very hard for her to stand now. The pain is 5/10 sharp and non radiating. Onset: Today Duration: Hour(s): Location: Reports: Lower Extremity, Left Quality: Reports: Sharp Severity: Moderate Improves with: Reports: None Worsens with: Reports: Movement Associated Symptoms: Reports: No Other Symptoms Left Knee Pain Score (Numeric/FACES): 9 - Related Data Allergies Allergy/AdvReac Type Severity Reaction Status Date / Time amlodipine Allergy Rash Verified 03/04/20 11:58 losartan [From Cozaar] Allergy Rash Verified 03/04/20 11:58 steri strips Allergy Rash Uncoded 03/04/20 11:58 glutin AdvReac Diarrhea Uncoded 03/04/20 11:58 Home Meds: Home Meds Cholecalciferol (Vitamin D3) [Vitamin D3] 1,000 units PO DAILY 01/12/16 [History] Multivitamin [Multivitamins] 1 tab PO DAILY 01/12/16 [History] rOPINIRole [Requip] 2 mg PO BEDTIME 01/12/16 [History] Cetirizine [ZyrTEC] 10 mg PO DAILY 10/09/18 [History] Chlorthalidone 25 mg PO DAILY 10/09/18 [History] Fexofenadine [Nataliia] 180 mg PO DAILY 10/09/18 [History] Fluticasone Propionate [Flonase] 2 spray NASBOTH DAILY PRN 10/09/18 [History] Montelukast [Singulair] 10 mg PO BEDTIME 10/09/18 [History] Pantoprazole [ProTONIX] 40 mg PO ACBREAKFAST 10/09/18 [History] Promethazine [Phenergan] 25 mg PO Q6HR PRN 10/09/18 [History] buPROPion [buPROPion XL] 300 mg PO DAILY 10/09/18 [History] Albuterol Sulfate [Albuterol Sulfate Hfa] 2 puff IN Q6H PRN 03/04/20 [History] Codeine Phosphate/Guaifenesin [Guaifen-Codeine 100-10 mg/5 ml] 5 ml PO BID PRN 03/04/20 [History] DULoxetine [Cymbalta] 60 mg PO DAILY 03/04/20 [History] Ipratropium [Atrovent 0.03% Nasal [place]] 2 spray INH TID PRN 03/04/20 [History] Mirabegron [Myrbetriq] 50 mg PO DAILY 03/04/20 [History] Potassium Chloride [Potassium Chloride Solution] 20 meq PO DAILY 03/04/20 [History] Rosuvastatin [Crestor] 5 mg PO BEDTIME 03/04/20 [History] SUMAtriptan [Imitrex] 25 mg PO ASDIRECTED 03/04/20 [History] lisinopriL [Lisinopril] 30 mg PO DAILY 03/04/20 [History] traZODone HCl [Trazodone HCl] 100 mg PO BEDTIME 03/04/20 [History] Cefpodoxime Proxetil 200 mg PO BID #14 tablet 03/13/20 [Rx] dexAMETHasone [Dexamethasone] 2 mg PO DAILY #3 tab 03/13/20 [Rx] Past Medical History HEENT History: Reports: Allergic Rhinitis Cardiovascular History: Reports: Hypertension Respiratory History: Reports: Other (See Below) Other Respiratory History: Pneumonia, obstructive sleep apnea Gastrointestinal History: Reports: Celiac Disease, GERD Genitourinary History: Reports: Other (See Below) Other Genitourinary History: overactive bladder, hx renal mass [employer] History: Reports: Musculoskeletal History: Reports: Back Pain, Chronic Neurological History: Reports: Other (See Below) Other Neuro History: "restless legs" Psychiatric History: Reports: Anxiety, Depression Endocrine/Metabolic History: Reports: Obesity/BMI 30+ Hematologic History: Reports: None Immunologic History: Reports: None Oncologic (Cancer) History: Reports: None Dermatologic History: Reports: Other (See Below) Other Dermatologic History: dermatitis - Infectious Disease History Infectious Disease History: Reports: Chicken Pox, Novel Coronavirus - Past Surgical History Head Surgeries/Procedures: Reports: None GI Surgical History: Reports: Cholecystectomy Female Surgical History: Reports: Hysterectomy Neurological Surgical History: Reports: None Musculoskeletal Surgical History: Reports: Shoulder Surgery, Other (See Below) Other Musculoskeletal Surgeries/Procedures:: back and neck surgery, lumbar disc disease, rotator cuff surgery x3 Social & Family History - Family History Family Medical History: No Pertinent Family History - Tobacco Use Tobacco Use Status *Q: Never Tobacco User Second Hand Smoke Exposure: No - Caffeine Use Caffeine Use: Reports: Coffee - Recreational Drug Use Recreational Drug Use: No - Living Situation & Occupation Living situation: Reports: Review of Systems - Review of Systems Review Of Systems: Comprehensive ROS is negative, except as noted in HPI. ED EXAM, GENERAL - Physical Exam Exam: See Below Exam Limited By: No Limitations General Appearance: Alert Respiratory/Chest: No Respiratory Distress, Lungs Clear Cardiovascular: Normal Peripheral Pulses, Regular Rate, Rhythm GI/Abdominal: Soft, Non-Tender Back Exam: Normal Inspection, Full Range of Motion Extremities: Other (slight swelling and contusion to L knee. Knee is stable with valgus and varus tests and ngetaive anterior drawer and posterior drawer. ) Psychiatric: Normal Affect, Normal Mood Skin Exam: Warm, Dry, Intact Course - Vital Signs Last Recorded V/S: Last Vital Signs Temp 97.9 F 01/05/21 17:47 Pulse 109 H 01/05/21 17:47 Resp 20 01/05/21 17:47 BP 148/107 H 01/05/21 17:47 Pulse Ox 98 01/05/21 17:47 - Orders/Labs/Meds Orders: Active Orders 24 hr Category Date Time Status Knee 3V Lt [CR] Stat Exams 01/05/21 18:04 Taken - Re-Assessments/Exams Free Text/Narrative Re-Assessment/Exam: 01/05/21 18:48 Discussed xray and exam with pt and advised her to ice rest and elevate her injured knee. Informed her to use tylenol and motrin for pain as needed. Departure - Departure Time of Disposition: 18:49 Disposition: Home, Self-Care 01 Condition: Fair Clinical Impression: Knee contusion Qualifiers: Encounter type: initial encounter Laterality: unspecified laterality Qualified Code(s): S80.00XA - Contusion of unspecified knee, initial encounter - Discharge Information *PRESCRIPTION DRUG MONITORING PROGRAM REVIEWED*: Not Applicable *COPY OF PRESCRIPTION DRUG MONITORING REPORT IN PATIENT VIKAS: Not Applicable Instructions: Knee Sprain, Adult Additional Instructions: Ice, elevate and rest your knee. Use tylenol or motrin for pain ass needed. If your symptoms do not improve in 10 days contact your primary care physician for further evaluation. Sepsis Event Note (ED) - Focused Exam Vital Signs: Vital Signs Temp Pulse Resp BP BP Pulse Ox 01/05/21 17:47 97.9 F 109 H 20 148/107 H 143/126 H 98
--- NOTE | 2021-01-05 19:04 | CR ---
PROCEDURE INFORMATION: Exam: XR Left Knee Exam date and time: 01/05/2021 6:24 PM Age: 55 years old Clinical indication: Pain; Knee; Left; Additional info: Left knee injury TECHNIQUE: Imaging protocol: XR Left knee. Views: 3 views. COMPARISON: CR Knee 3V Lt 10/16/2019 1:27 AM FINDINGS: Bones/joints: No acute fracture or dislocation. Marginal patellar osteophytes. Soft tissues: Normal. IMPRESSION: No fracture. No significant change.
== END 2021-01-05 18:58 | disposition home or self-care (01) ==
LOC: DL.ED 17:28
DX: S80.02XA Contusion of left knee, initial encounter (principal); I10 Essential (primary) hypertension; K21.9 Gastro-esophageal reflux disease without esophagitis; E66.9 Obesity, unspecified; Z68.34 Body mass index [BMI] 34.0-34.9, adult; Z88.8 Allergy status to other drugs, medicaments and biological substances; Z91.018 Allergy to other foods; Z91.048 Other nonmedicinal substance allergy status; Z79.899 Other long term (current) drug therapy; W01.0XXA Fall on same level from slipping, tripping and stumbling without subsequent striking against object, initial encounter; Y93.01 Activity, walking, marching and hiking
CPT/HCPCS: 73562-LT; 99283-25

== ENCOUNTER 2021-06-16 14:27 | Emergency (ER) | payer OTHER ==
[2021-06-16] MEDS ORDERED: Acetaminophen/oxyCODONE 325-5 MG Tab PO ONE ×2 (14:28→18:53)
[2021-06-16 17:23] VITALS: BP 165/100; PULSE 77
[2021-06-16 18:47] LABS: ANION GAP 11.8 mEq/L (7-13); CHLORIDE,CL 106 mmol/L (98-107); SODIUM,NA 141 mmol/L (136-145)
[2021-06-16] MEDS ORDERED: Acetaminophen/oxyCODONE 325-5 MG Tab ONE (19:43)
== END 2021-06-16 19:55 | disposition home or self-care (01) ==
LOC: DL.ED 14:27
DX: M25.561 Pain in right knee (principal); R60.0 Localized edema; I10 Essential (primary) hypertension; K21.9 Gastro-esophageal reflux disease without esophagitis; E66.9 Obesity, unspecified; Z68.36 Body mass index [BMI] 36.0-36.9, adult; Z88.5 Allergy status to narcotic agent; Z79.899 Other long term (current) drug therapy; Z91.048 Other nonmedicinal substance allergy status
CPT/HCPCS: 36415; 73562; 80053; 83605; 83880; 85025; 85379; 86140; 87040; 93971; 99284; A9270

== ENCOUNTER 2021-08-26 11:14 | Emergency (ER) | payer OTHER ==
[2021-08-26] MEDS ORDERED: Nitroglycerin 0.4 MG Tab.SL SL ONE ×4 (11:32→13:26)
[2021-08-26] MEDS ORDERED: Nitroglycerin 0.4 MG Tab.SL ONE (11:33)
[2021-08-26] MEDS ORDERED: Metoprolol Tartrate 5 MG/5 ML SDV IVPUSH ONE ×2 (12:19→13:40)
[2021-08-26 12:22] LABS: ANION GAP 13.3 mEq/L (7-13); CHLORIDE,CL 100 mmol/L (98-107); SODIUM,NA 136 mmol/L (136-145)
[2021-08-26 13:08] LABS: AMPHETAMINES,URINE NEGATIVE (NEGATIVE); BARBITURATES,URINE NEGATIVE (NEGATIVE); BENZODIAZEPINE,URINE NEGATIVE (NEGATIVE); MDMA (ECSTASY), URINE NEGATIVE (NEGATIVE); METHADONE,URINE NEGATIVE (NEGATIVE); METHAMPHETAMINES,URINE NEGATIVE (NEGATIVE); OPIATES,URINE NEGATIVE (NEGATIVE); OXYCODONE,URINE NEGATIVE (NEGATIVE); PHENCYCLIDINE,URINE NEGATIVE (NEGATIVE); TCA,URINE NEGATIVE (NEGATIVE)
[2021-08-26] MEDS ORDERED: hydrALAZINE 20 MG/ML SDV IVPUSH ONE ×2 (13:20→14:47)
[2021-08-26 13:23] LABS: CORONAVIRUS COVID-19 NAA NEGATIVE (NEGATIVE)
[2021-08-26] MEDS ORDERED: GI Cocktail Oral Solution 30 ML PO ONE (13:40)
[2021-08-26 13:58] VITALS: PULSE 70
[2021-08-26] MEDS ORDERED: cloNIDine 0.1 MG Tab PO ONE (15:31)
[2021-08-26 15:44] VITALS: BP 172/101
== END 2021-08-26 17:54 | disposition home or self-care (01) ==
LOC: DL.ED 11:14
DX: R07.89 Other chest pain (principal); I10 Essential (primary) hypertension; E66.9 Obesity, unspecified; Z68.30 Body mass index [BMI] 30.0-30.9, adult; Z88.5 Allergy status to narcotic agent; Z88.8 Allergy status to other drugs, medicaments and biological substances; Z86.16 Personal history of COVID-19; Z91.048 Other nonmedicinal substance allergy status; Z20.822 Contact with and (suspected) exposure to COVID-19
CPT/HCPCS: 0240U; 36415; 71045; 80053; 80305-QW; 80307; 81003; 82150; 82728; 83605; 83690; 84484; 85025; 85379; 86140; 93005; 96374; 96375; 99285-25; A9270-GY; J0360; J3490

== ENCOUNTER 2024-10-25 22:43 | Emergency (ER) | payer BC ==
[2024-10-25] MEDS ORDERED: Naloxone 2 MG/2 ML Syringe IVPUSH PRN (22:58)
[2024-10-25] MEDS ORDERED: Sodium Chloride 0.9% 10 ML Syringe FLUSH PRN (22:59)
[2024-10-25 23:08] LABS: HEMOGLOBIN 13.7 g/dL (12.0-16.0); MEAN CORPUSCULAR HEMOGLOBIN 30.9 pg (27.0-34.0); MEAN CORPUSCULAR HGB CONC 34.3 g/dL (33.0-35.0); MEAN CORPUSCULAR VOLUME 90.3 fL (80-100); PLATELET COUNT,PLT 313 10^3/uL (150-450); RED BLOOD CELL COUNT 4.43 10^6/uL (4.2-5.4); WHITE BLOOD CELL COUNT,WBC 13.7 10^3/uL (5.0-10.0)
[2024-10-25 23:09] LABS: BASOPHILS PERCENT AUTO 0.5 % (0.0-1.0); LYMPHOCYTES PERCENT AUTO 22.5 % (20.5-50.1); MONOCYTES PERCENT AUTO 9.6 % (2-8); NEUTROPHILS PERCENT AUTO 67.4 % (42.2-75.2)
[2024-10-25] MEDS: Ondansetron 4 MG/2 ML SDV IVPUSH ONE (23:11)
[2024-10-25] MEDS: HYDROmorphone 1 MG/ML Syringe ONE (23:12)
[2024-10-25] MEDS: HYDROmorphone 1 MG/ML Syringe IVPUSH ONE (23:12)
[2024-10-25 23:19] LABS: ALANINE AMINOTRANSFERASE,ALT 38 U/L (14-59); ALBUMIN 3.6 g/dL (3.4-5.0); ALKALINE PHOSPHATASE 127 U/L (46-116); ANION GAP 16.1 mEq/L (7-13); ASPARTATE AMNIOTRANSFERASE,AST 29 U/L (15-37); BILIRUBIN TOTAL 0.3 mg/dL (0.2-1.0); BLOOD UREA NITROGEN,BUN 19 mg/dL (7-18); BUN/CREATININE RATIO 19.8 (No establ ref range); CALCIUM 8.5 mg/dL (8.5-10.1); CARBON DIOXIDE,CO2 23 mmol/L (21-32); CHLORIDE,CL 107 mmol/L (98-107); CREATININE 0.96 mg/dL (0.55-1.02); ETHANOL BLOOD MEDICAL 72 mg/dL (0); GLUCOSE RANDOM 108 mg/dL (70-99); POTASSIUM,K 4.1 mmol/L (3.5-5.1); PROTEIN TOTAL,TP 7.3 g/dL (6.4-8.2); SODIUM,NA 142 mmol/L (136-145)
[2024-10-25 23:20] LABS: ESTIMATED GFR 69 mL/min (>=60)
[2024-10-25 23:27] LABS: BAND PERCENT MAN 1 %; LYMPHOCYTES PERCENT MAN 25 % (20-50); MONOCYTES PERCENT MAN 9 % (2-8); SEG NEUTROPHILS PERCENT MAN 65 % (42-75)
[2024-10-25 23:47] LABS: AMPHETAMINES,URINE NEGATIVE (NEGATIVE); BARBITURATES,URINE NEGATIVE (NEGATIVE); BENZODIAZEPINE,URINE NEGATIVE (NEGATIVE); MDMA (ECSTASY), URINE NEGATIVE (NEGATIVE); METHADONE,URINE NEGATIVE (NEGATIVE); METHAMPHETAMINES,URINE NEGATIVE (NEGATIVE); OPIATES,URINE NEGATIVE (NEGATIVE); OXYCODONE,URINE NEGATIVE (NEGATIVE); PHENCYCLIDINE,URINE NEGATIVE (NEGATIVE); TCA,URINE NEGATIVE (NEGATIVE)
[2024-10-26 00:04] VITALS: BP 148/77; PULSE 81
== END 2024-10-26 00:56 | disposition home or self-care (01) ==
LOC: DL.ED 22:43
DX: S20.212A Contusion of left front wall of thorax, initial encounter (principal); I10 Essential (primary) hypertension; K21.9 Gastro-esophageal reflux disease without esophagitis; E66.9 Obesity, unspecified; Z79.899 Other long term (current) drug therapy; Z91.018 Allergy to other foods; Z91.048 Other nonmedicinal substance allergy status; Z88.8 Allergy status to other drugs, medicaments and biological substances; Z88.5 Allergy status to narcotic agent; W11.XXXA Fall on and from ladder, initial encounter
CPT/HCPCS: 36415; 71101-LT; 80053; 80305-QW; 80307; 85025; 93005; 96374; 96375; 99284-25; J1171; J2405